=== PATIENT | female | born 1950 | race Caucasian/White ===

== ENCOUNTER 2022-12-13 09:27 | Outpatient (CLI) | payer MEDICARE, OTHER, SELFPAY | END 2022-12-13 09:28 | disposition home or self-care (01) | LOC: INJ CL 09:31 | PROVIDERS: PCP Family Medicine; Visit Provider Family Medicine | DX: M54.16 Radiculopathy, lumbar region (principal); M51.36 Other intervertebral disc degeneration, lumbar region | CPT/HCPCS: 64483; J1100; Q9966 ==

== ENCOUNTER 2022-12-27 09:30 | Outpatient (RCR) | payer MEDICARE, OTHER, SELFPAY ==
--- NOTE | 2022-12-17 13:40 | URNOTE ---
Received request for prior auth for [employer] ([id number]). Pt has medicare primary. Prior auth is not required as services are based on medical necessity and follow medicare guidelines.
[2022-12-20 11:18] VITALS: BP 159/85; PULSE 73; RESP 16; TEMP 36.6; O2SAT 98
[2022-12-20] MEDS: FERRIC CARBOXYMALTOSE 750 MG in 0.9 % SODIUM CHLORIDE 250 ml 250 ML 1060 MG IVPB (11:36)
[2022-12-20] MEDS: 0.9 % SODIUM CHLORIDE 250 ml IV (11:36)
[2022-12-20] MEDS: SODIUM CHLORIDE 0.9 % (FLUSH) 10 ML SYRINGE IVF (11:36)
[2022-12-20 12:35] VITALS: BP 148/84; PULSE 72
[2022-12-27 09:35] VITALS: BP 124/63; PULSE 72; RESP 16; TEMP 36.4; O2SAT 100
[2022-12-27] MEDS: FERRIC CARBOXYMALTOSE 750 MG in 0.9 % SODIUM CHLORIDE 250 ml 250 ML 1060 MG IVPB (10:19)
[2022-12-27] MEDS: 0.9 % SODIUM CHLORIDE 250 ml IV (10:20)
[2022-12-27 10:45] VITALS: BP 130/81; PULSE 60; RESP 16; O2SAT 98
[2022-12-27 11:10] VITALS: BP 115/73; PULSE 63
== END 2023-06-18 23:59 | disposition home or self-care (01) ==
LOC: CCIC 09:30
PROVIDERS: PCP Family Medicine; Referring Provider Family Medicine; Visit Provider Clinical Nurse Specialist
DX: R79.0 Abnormal level of blood mineral (principal)
CPT/HCPCS: 96365; 96374; J1439; J7050

== ENCOUNTER 2025-05-31 07:56 | Outpatient (CLI) | payer MEDICARE, SELFPAY | END 2025-05-31 07:57 | disposition home or self-care (01) | LOC: INJ CL 07:57 | PROVIDERS: PCP Family Medicine; Visit Provider Family Medicine | DX: M54.16 Radiculopathy, lumbar region (principal); M51.360 Other intervertebral disc degeneration, lumbar region with discogenic back pain only | CPT/HCPCS: 64483; J1100; Q9966 ==